=== PATIENT | male | born 1955 | race African-American/Black ===

== ENCOUNTER 2018-01-08 12:57 | Emergency (ER) | payer OTHER ==
[2018-01-08 13:07] VITALS: BP 126/76; PULSE 63; TEMP 98; BMI 54.3
[2018-01-08] MEDS ORDERED: DIPHTH,PERTUSS(ACELL),TET 0.5 ML DISP.SYRIN IM ONE (13:37)
--- NOTE | 2018-01-08 13:40 | PDOC ---
History of Present Illness - General Chief Complaint: Injury Stated Complaint: RT FINGER LACERATION Time Seen by Provider: 01/08/18 13:10 History Source: Patient Exam Limitations: No Limitations - History of Present Illness Initial Comments: 01/08/18 13:38 right middle digit laceration on a piece of metal on an electric pot 48hrs ago at home. no bleeding, pt requesting tetanus vaccine. no PMHX. Past History - Past Medical History Allergies/Adverse Reactions: Allergies Allergy/AdvReac Type Severity Reaction Status Date / Time trifluoperazine Allergy Verified 01/08/18 13:07 [From Stelazine] ustekinumab [From Stelara] Allergy Verified 01/08/18 13:07 Home Medications: Ambulatory Orders Divalproex [Depakote -] 500 mg PO DAILY 01/08/18 Risperidone [Risperdal] 4 mg PO DAILY 01/08/18 COPD: No Psychiatric Problems: Yes (bipolar) - Suicide/Smoking/Psychosocial Hx Smoking History: Never smoked *Physical Exam - Vital Signs Last Vital Signs Temp Pulse Resp BP Pulse Ox 98 F 63 18 126/76 99 01/08/18 13:03 01/08/18 13:03 01/08/18 13:03 01/08/18 13:03 01/08/18 13:03 Medical Decision Making - Medical Decision Making 01/08/18 13:38 cc: laceration to the right middle digit 48hrs ago at home no bleeding no redness nv intact will update tetanus, clean wound with betadine, bacitracin and bandaid wound care discussed *DC/Admit/Observation/Transfer Diagnosis at time of Disposition: Laceration - Discharge Dispostion Disposition: HOME Condition at time of disposition: Good - Referrals - Patient Instructions Printed Discharge Instructions: DTaP Vaccine Additional Instructions: keep wound clean and air out at home cover at work and when outside apply a topical antibiotic such as bacitracin once a day for 3 days return to ER for any worsening symptoms - Post Discharge Activity
== END 2018-01-08 13:48 | disposition home or self-care (01) ==
LOC: JERFT 12:57
PROC: 3E0234Z Introduction of Serum, Toxoid and Vaccine into Muscle, Percutaneous Approach (ICD-10-PCS; principal; 2018-01-08)
DX: S61.212A Laceration without foreign body of right middle finger without damage to nail, initial encounter (principal); W29.0XXA Contact with powered kitchen appliance, initial encounter; Y93.89 Activity, other specified; Y92.030 Kitchen in apartment as the place of occurrence of the external cause
CPT/HCPCS: 90471; 90715; 99281-25